=== PATIENT | male | born 1970 | race Caucasian/White ===

== ENCOUNTER 2021-12-01 15:59 | Observation (INO) | payer SELFPAY ==
[2021-12-01 16:43] LABS: Absolute Lymphocytes (CBC) 3.1 K/uL (0.7-4.9); Hematocrit 43.7 % (39.6-49.0); Lymphocytes % 31.7 % (15.3-44.8); MPV 7.9 fL (7.6-11.3); RBC Red Blood Cell Count 4.95 M/uL (4.33-5.43)
[2021-12-01 17:07] LABS: Potassium 4.1 mmol/L (3.5-5.1); Troponin High Sensitivity 5.7 pg/mL (<58.9)
--- NOTE | 2021-12-01 18:12 | RAD REPORT ---
EXAM DESCRIPTION: RAD - Chest Single View - 12/01/2021 5:58 pm CLINICAL HISTORY: CHEST PAIN Chest pain. COMPARISON: CHEST PA AND LAT 2 VIEW dated 08/21/2015; CHEST PA AND LAT 2 VIEW dated 10/20/2009 FINDINGS: Portable technique limits examination quality. The lungs are grossly clear. The heart is normal in size. No displaced fractures. IMPRESSION: No acute intrathoracic process suspected.
[2021-12-01] MEDS ORDERED: ASPIRIN 81 MG CHEWABLE TABLET ONE (18:35)
--- NOTE | 2021-12-01 18:45 | ER ---
Nurse's Notes [facility] Name: Walter Gutiérrez Age: 51 yrs Sex: Male : 1970 Arrival Date: 12/01/2021 Time: 16:00 Bed 4 Private MD: Diagnosis: Chest pain, unspecified Presentation: 12/01 16:04 Chief complaint: Patient states: about 15 minutes ago, pt states chest pain that 'feels vg1 like someone was standing across my chest'. Pt denies SOB, nausea, or headache. Also stated chest pain did not radiate. Coronavirus screen: Vaccine status: Patient reports being unvaccinated. Client denies travel out of the [place] in the last 14 days. Ebola Screen: Patient denies exposure to infectious person. Patient denies travel to an Ebola-affected area in the 21 days before illness onset. Initial Sepsis Screen: Does the patient meet any 2 criteria? No. Patient's initial sepsis screen is negative. Does the patient have a suspected source of infection? No. Patient's initial sepsis screen is negative. Risk Assessment: Do you want to hurt yourself or someone else? Patient reports no desire to harm self or others. Onset of symptoms was December 01, 2021. 16:04 Method Of Arrival: Ambulatory vg1 16:04 Acuity: SHABANA 2 vg1 Triage Assessment: 16:08 General: Appears uncomfortable, Behavior is cooperative. Pain: Complains of pain in vg1 chest. Cardiovascular: Patient's skin is warm and dry. Historical: - Allergies: 16:08 No Known Allergies; vg1 - Home Meds: 16:08 Lisinopril Oral [Active]; Metformin Oral [Active]; vg1 - PMHx: 16:08 Hypertensive disorder; Diabetes mellitus; vg1 - Immunization history:: Client reports having NOT received the Covid vaccine. - Social history:: Smoking status: Patient reports the use of cigarette tobacco products, smokes two packs cigarettes per day. Screenin:50 Abuse screen: Denies threats or abuse. Denies injuries from another. Nutritional ww screening: No deficits noted. Tuberculosis screening: No symptoms or risk factors identified. Fall Risk None identified. Assessment: 17:50 General: Appears in no apparent distress. Pain: Complains of pain in chest Pain began ww suddenly. Neuro: Level of Consciousness is awake, alert, obeys commands, Oriented to person, place, time, situation, Moves all extremities. Speech is normal. Cardiovascular: Capillary refill < 3 seconds Patient's skin is warm and dry. Respiratory: Airway is patent Respiratory effort is even, unlabored, Respiratory pattern is regular, symmetrical. GI: No signs and/or symptoms were reported involving the gastrointestinal system. : No signs and/or symptoms were reported regarding the genitourinary system. Derm: Skin is healthy with good turgor. 18:21 Reassessment: Patient appears in no apparent distress at this time. No changes from previously documented assessment. Patient and/or family updated on plan of care and expected duration. Pain level reassessed. Patient is alert, oriented x 3, equal unlabored respirations, skin warm/dry/pink. Vital Signs: 16:04 BP 115 / 92; Pulse 88; Resp 16; Temp 97.5; Pulse Ox 98% ; Weight 97.52 kg; Height 5 ft. vg1 10 in. (177.80 cm); Pain 0/10; 17:30 BP 107 / 77; Pulse 81; Resp 16; Pulse Ox 98% on R/A; ww 18:21 BP 116 / 67; Pulse 73; Resp 16; Pulse Ox 98% on R/A; ww 16:04 Body Mass Index 30.85 (97.52 kg, 177.80 cm) vg1 ED Course: 16:00 Patient arrived in ED. rg4 16:08 Andrew Byrd NP is PHCP. pm1 16:08 Alisia Weiner MD is Attending Physician. pm1 16:08 Triage completed. vg1 16:08 Arm band placed on. vg1 16:17 Una Amaya, KP is Primary Nurse. ww 16:18 EKG done, by ED staff, reviewed by Andrew Byrd NP. mb7 16:26 Inserted saline lock: 20 gauge in right antecubital area, using aseptic technique. mb7 17:50 Patient has correct armband on for positive identification. Bed in low position. Call ww light in reach. Side rails up X 1. Adult w/ patient. media monitor on. Pulse ox on. NIBP on. 17:50 Patient maintains SpO2 saturation greater than 95% on room air. ww 18:00 XRAY Chest (1 view) In Process Unspecified. EDMS 18:44 Brown, Christine, PA is Hospitalizing Provider. pm1 19:29 Primary Nurse role handed off by Una Amaya, RN mw2 20:00 Amy Souza, RN is Primary Nurse. kd3 Administered Medications: 18:33 Drug: Aspirin Chewable Tablet 324 mg Route: PO; ww Outcome: 18:44 Decision to Hospitalize by Provider. pm1 23:11 Patient left the ED. al4 Signatures: Dispatcher [employer] EDCT Anderw Byrd NP AQUATICS ASSISTANT DEPARTMENT HEAD pm1 Adalgisa Adams rg4 Mikala Pruitt mw2 Crystal Adams, RN RN vg1 Amy Souza, RN RN kd3 Yessenia Sandhu7 Truong Soares al4 Una Amaya, RN RN ww
--- NOTE | 2021-12-01 18:45 | EDPHYS ---
Physician Documentation [facility] Name: Walter Gutiérrez Age: 51 yrs Sex: Male : 1970 Arrival Date: 12/01/2021 Time: 16:00 Bed 4 Private MD: ED Physician Alisia Weiner HPI: 12/01 16:08 This 51 yrs old Male presents to ER via Unassigned with complaints of Chest Pain. pm1 16:08 The patient or guardian reports chest pain that is located primarily in the mid-sternal pm1 area. Onset: just prior to arrival. The pain does not radiate. Associated signs and symptoms: Pertinent positives: diaphoresis, Pertinent negatives: abdominal pain, cough, dizziness, headache, nausea, shortness of breath, vomiting. The chest pain is described as a pressure. Duration: The patient or guardian reports a single episode, that is now resolved, that lasted 15 minute(s). Modifying factors: The symptoms are alleviated by nothing. the symptoms are aggravated by nothing. Severity of pain: At its worst the pain was a 8 / 10 in the emergency department the pain has resolved. The patient has not experienced similar symptoms in the past. The patient has not recently seen a physician. 16:08 Father [place] hx late 50's. pm1 Historical: - Allergies: 16:08 No Known Allergies; vg1 - Home Meds: 16:08 Lisinopril Oral [Active]; Metformin Oral [Active]; vg1 - PMHx: 16:08 Hypertensive disorder; Diabetes mellitus; vg1 - Immunization history:: Client reports having NOT received the Covid vaccine. - Social history:: Smoking status: Patient reports the use of cigarette tobacco products, smokes two packs cigarettes per day. ROS: 16:08 Constitutional: Negative for fever, chills, and weight loss. pm1 16:08 Respiratory: Negative for shortness of breath, cough, wheezing, and pleuritic chest pain, Abdomen/GI: Negative for abdominal pain, nausea, vomiting, diarrhea, and constipation, Back: Negative for injury and pain, MS/Extremity: Negative for injury and deformity, Skin: Negative for injury, rash, and discoloration, Neuro: Negative for headache, weakness, numbness, tingling, and seizure. 16:08 Cardiovascular: Positive for chest pain, Negative for edema, palpitations. 16:08 All other systems are negative. Exam: 16:08 Constitutional: This is a well developed, well nourished patient who is awake, alert, pm1 and in no acute distress. Head/Face: Normocephalic, atraumatic. 16:08 Back: No spinal tenderness. No costovertebral tenderness. Full range of motion. Skin: Warm, dry with normal turgor. Normal color with no rashes, no lesions, and no evidence of cellulitis. MS/ Extremity: Pulses equal, no cyanosis. Neurovascular intact. Full, normal range of motion. 16:08 Eyes: Exam is negative for acute changes, Extraocular movements: no acute changes, Conjunctiva: normal, no injection, Sclera: no acute changes, icterus, is not appreciated. 16:08 Cardiovascular: Exam negative for acute changes, Rate: normal, Rhythm: regular, Pulses: no pulse deficits are appreciated, Heart sounds: normal, normal S1and S2, Edema: is not appreciated. 16:08 Respiratory: Exam negative for acute changes, respiratory distress, shortness of breath, Breath sounds: are clear throughout. 16:08 Abdomen/GI: Inspection: obese Palpation: abdomen is soft and non-tender, in all quadrants. 16:08 Neuro: Exam negative for acute changes, Orientation: is normal, Mentation: is normal, Motor: is normal, moves all fours. Vital Signs: 16:04 BP 115 / 92; Pulse 88; Resp 16; Temp 97.5; Pulse Ox 98% ; Weight 97.52 kg; Height 5 ft. vg1 10 in. (177.80 cm); Pain 0/10; 17:30 BP 107 / 77; Pulse 81; Resp 16; Pulse Ox 98% on R/A; ww 18:21 BP 116 / 67; Pulse 73; Resp 16; Pulse Ox 98% on R/A; ww 16:04 Body Mass Index 30.85 (97.52 kg, 177.80 cm) vg1 MDM: 16:10 Patient medically screened. pm1 18:21 ED course: Discussed case with Dr. Bone, recommends admission for further evaluation pm1 of chest pain. 18:26 Data reviewed: vital signs. Data interpreted: Pulse oximetry: on room air is 98 %. pm1 Interpretation: normal. Counseling: I had a detailed discussion with the patient and/or guardian regarding: the historical points, exam findings, and any diagnostic results supporting the discharge/admit diagnosis, lab results, radiology results, the need for further work-up and treatment in the hospital. 12/01 16:30 Order name: Basic Metabolic Panel; Complete Time: 17:21 12/01 16:30 Order name: CBC with Diff; Complete Time: 16:58 12/01 16:30 Order name: Troponin HS; Complete Time: 17:21 12/01 16:30 Order name: XRAY Chest (1 view); Complete Time: 18:13 12/01 19:34 Order name: COVID-19/FLU A+B (Document "Date of Onset" if Symptomatic); Complete Time: mw2 08:11 12/01 16:30 Order name: EKG; Complete Time: 16:30 12/01 16:30 Order name: Cardiac monitoring; Complete Time: 16:30 12/01 16:30 Order name: EKG - Nurse/Tech; Complete Time: 16:30 12/01 16:30 Order name: IV Saline Lock; Complete Time: 16:30 12/01 16:30 Order name: Labs collected and sent; Complete Time: 16:30 12/01 16:30 Order name: O2 Per Protocol; Complete Time: 16:30 12/01 16:30 Order name: O2 Sat Monitoring; Complete Time: 16:46 ss Administered Medications: 18:33 Drug: Aspirin Chewable Tablet 324 mg Route: PO; ww Disposition Summary: 12/01/21 18:44 Hospitalization Ordered Hospitalization Status: Observation pm1 Provider: Christine Hand pm1 Location: Telemetry/[facility] (observation) pm1 Condition: Stable pm1 Problem: new pm1 Symptoms: have improved pm1 Bed/Room Type: Standard pm1 Room Assignment: 206(12/01/21 21:34) vc1 Diagnosis - Chest pain, unspecified pm1 Forms: - Medication Reconciliation Form pm1 - SBAR form pm1 Signatures: Dispatcher [employer] Angelica Kumari RN RN ss Andrew Byrd, BAY PUMP OPERATOR pm1 Crystal Adams RN RN vg1 Una Amaya RN RN ww Calcote, Vanessa, RN RN vc1 Corrections: (The following items were deleted from the chart) 21:34 18:44 pm1 vc1
[2021-12-01 21:04] LABS: SARS-COV-2 RT PCR NEGATIVE (NEGATIVE)
[2021-12-01] MEDS ORDERED: ONDANSETRON 4 MG/2 ML VIAL IV PRN (22:41)
[2021-12-01] MEDS ORDERED: ACETAMINOPHEN 500 MG TAB PO PRN (22:41)
[2021-12-01] MEDS ORDERED: ATORVASTATIN 40 MG TAB PO SCH (22:41)
--- NOTE | 2021-12-01 22:46 | P.HP ---
Certification for Inpatient Patient admitted to: Observation With expected LOS: <2 Midnights Patient will require the following post-hospital care: None Practitioner: I am a practitioner with admitting privileges, knowledge of patient current condition, hospital course, and medical plan of care. Services: Services provided to patient in accordance with Admission requirements found in Title 42 Section 412.3 of the Code of Federal Regulations Patient History Date of Service: 12/01/21 Reason for admission: Chest pain History of Present Illness: Patient is a 51-year-old male with past medical history of hypertension and prediabetes who presented to the ED with complaints of chest pain. He states he was at [employer] helping move something heavy and started to feel mild chest pain that resolved. About 30 minutes later he was sitting in the drive-through [facility] and started to feel an 8/10 midsternal chest pain. He reported some diaphoresis but denied any radiation, shortness of breath, nausea or vomiting. In the ED, EKG showed NSR, chest x-ray without abnormalities, troponin negative, other labs within normal limits. Patient sta ludwin he has not seen a web ui developer. He does have a family history of [place] and smokes 2 packs a day. he was given 324 mg of aspirin. ED provider wishes to admit patient for observation. Allergies No Known Drug Allergies Allergy (Unverified 01/17/15 00:28) Unknown Home medications list reviewed: Yes - Past Medical/Surgical History Diabetic: No -: Hypertension -: Prediabetes Past Surgical History: Patient denies surgical history Psychosocial/ Personal History: Patient works as a truck shop mechanic. He lives at home with his . - Family History Father -: Heart disease - Social History Smoking Status: Heavy Tobacco smoker (>10 cigarettes/day) Alcohol use: Yes CD- Drugs: No Caffeine use: Yes Place of Residence: Home Review of Systems 10-point ROS is otherwise unremarkable Cardiovascular: Chest Pain Physical Examination - Physical Exam General: Alert, In no apparent distress, Oriented x3 HEENT: Atraumatic, PERRLA, Mucous membr. moist/pink, EOMI, Sclerae nonicteric Neck: Supple, 2+ carotid pulse no bruit, No LAD, Without JVD or thyroid ab normality Respiratory: Clear to auscultation bilaterally, Normal air movement Cardiovascular: No edema, Normal pulses, Regular rate/rhythm, Normal S1 S2 Gastrointestinal: Normal bowel sounds, No tenderness Musculoskeletal: No tenderness Integumentary: No rashes Neurological: Normal speech, Normal strength at 5/5 x4 extr, Normal tone, Normal affect - Studies Laboratory Data (last 24 hrs) 12/01/21 16:25: WBC 9.7, Hgb 15.2, Hct 43.7, Plt Count 238 12/01/21 16:25: Sodium 135 L, Potassium 4.1, BUN 20 H, Creatinine 1.19, Glucose 93 Assessment and Plan - Problems (Diagnosis) (1) Chest pain Current Visit: Yes Status: Acute Qualifiers: Chest pain type: unspecified Qualified Code(s): R07.9 - Chest pain, unspecified (2) Hypertension Current Visit: Yes Status: Chronic Qualifiers: Hypertension type: primary hypertension Qualified Code(s): I10 - Essential (primary) hypertension (3) Tobacco use Current Visit: Yes Status: Chronic (4) Prediabetes Current Visit: Yes Status: Chronic - Plan -Patient given 324 mg chewable aspirin in the ED. We will continue 81 mg daily. Atorvastatin 40 mg ordered at bedtime -Cardiology consulted. Echo ordered. Patient has not seen a web ui developer in the past nor had a cardiac work-up -Initial troponin negative at 5.7. Will check every 6 hours x2. EKG showed NSR. Patient states chest pain has resolved -Patient smokes 2-2.5 pack of cigarettes a day. Nicotine patch as needed -Continue home medications -Lovenox for DVT prophylaxis Discharge Plan: Home Plan to discharge in: 24 Hours - Advance Directives Does patient have a Living Will: No Does patient have a Durable POA for Healthcare: No - Code Status/Comfort Care Code Status Assessed: Yes (Full) Critical Care: No Time Spent Managing Pts Care (In Minutes): 50
[2021-12-02 02:12] VITALS: O2SAT 95; BMI 30.8
[2021-12-02 08:21] VITALS: BP 107/69; TEMP 98.1
[2021-12-02] MEDS ORDERED: NICOTINE 21 MG/PAT TD SCH (09:00)
[2021-12-02 09:24] LABS: Troponin High Sensitivity 5.2 pg/mL (<58.9)
[2021-12-02 09:25] LABS: Thyroid Stimulating Hormone 3.83 uIU/mL (0.360-3.740)
--- NOTE | 2021-12-02 10:17 | P.DS ---
Admission Date: 12/01/21 Discharge Date: 12/02/21 Disposition: ROUTINE DISCHARGE Discharge Condition: FAIR Reason for Admission: Chest pain - Problems (1) DM type 2 (diabetes mellitus, type 2) Status: Acute (2) Chest pain Status: Acute Qualifiers: Chest pain type: unspecified Qualified Code(s): R07.9 - Chest pain, unspecified (3) Hypertension Status: Chronic Qualifiers: Hypertension type: primary hypertension Qualified Code(s): I10 - Essential (primary) hypertension (4) Tobacco use Status: Chronic Brief History of Present Illness: Patient is a 51-year-old male with past medical history of hypertension and diabetes who presented to the ED with complaints of chest pain. He states he was at [employer] helping move something heavy and started to feel mild chest pain that resolved. About 30 minutes later he was sitting in the drive-through [facility] and started to feel an 8/10 midsternal chest pain. He reported some diaphoresis but denied any radiation, shortness of breath, nausea or vomiting. In the ED, EKG showed NSR, chest x-ray without abnormalities, troponin negative, other labs within normal limits. He does have a family history of [place] and smokes 2 packs a day. he was given 324 mg of aspirin. Patient placed on observation for ACS rule out. Hospital Course: Troponin trended negative. Patient was chest pain-free during the observation. Lipid profile showed elevated triglyceride. Patient requested to go home today. I discussed with him the need for stress test given his significant CAD risk factors. Patient declined to stay in the hospital to tomorrow for stress test. He is discharged per his request to take baby aspirin daily and to cut down his fat and lipid intake. He is referred for outpatient stress test with Dr. Pitts and informed to call Dr. Pitts's office tomorrow for arrangement for stress test. Vital Signs/Physical Exam: Temp Pulse Resp BP Pulse Ox 98.1 F 68 14 107/69 97 12/02/21 08:00 12/02/21 08:00 12/02/21 08:00 12/02/21 08:00 12/02/21 08:00 General: Alert, In no apparent distress, Oriented x3 HEENT: Mucous membr. moist/pink Neck: Supple, JVD not distended Respiratory: Clear to auscultation bilaterally, Normal air movement Cardiovascular: No edema, Regular rate/rhythm, Normal S1 S2 Capillary refill: <2 Seconds Gastrointestinal: Soft and benign, Non-distended, No tenderness Musculoskeletal: No swelling Integumentary: No rashes, No erythema, No cyanosis Neurological: Normal strength at 5/5 x4 extr Laboratory Data at Discharge: WBC 9.7 K/uL (4.3-10.9) 12/01/21 16:25 Hgb 15.2 g/dL (13.6-17.9) 12/01/21 16:25 Hct 43.7 % (39.6-49.0) 12/01/21 16:25 Plt Count 238 K/uL (152-406) 12/01/21 16:25 Sodium 135 mmol/L (136-145) L 12/01/21 16:25 Potassium 4.1 mmol/L (3.5-5.1) 12/01/21 16:25 BUN 20 mg/dL (7-18) H 12/01/21 16:25 Creatinine 1.19 mg/dL (0.55-1.3) 12/01/21 16:25 Glucose 93 mg/dL (74-106) 12/01/21 16:25 Triglycerides 329 mg/dL (<150) H 12/02/21 08:48 Cholesterol 164 mg/dL (<200) 12/02/21 08:48 HDL Cholesterol 35 mg/dL (40-60) L 12/02/21 08:48 Cholesterol/HDL Ratio 4.69 12/02/21 08:48 Home Medications: Glimepiride 1 mg PO DAILY 12/01/21 Lisinopril/Hydrochlorothiazide [Lisinopril-Hctz 20-12.5 mg Tab] 2 tab PO DAILY 12/01/21 Metformin HCl 850 mg PO BID 12/01/21 Aspirin [Aspirin EC 81 MG] 81 mg PO DAILY #30 tablet. 12/02/21 New Medications: Aspirin [Aspirin EC 81 MG] 81 mg PO DAILY #30 tablet. Diet: ADA Activity: Ad kale Followup: Robi Pitts MD [ACTIVE - CAN ADMIT] - 1-2 Days (Please call Office at [phone] for arrangements for stress test) Kenneth Ayala FNP [OUTSIDE PHYSICIAN] - 1-2 Weeks (PCP- call to schedule an appointment )
== END 2021-12-02 11:22 | disposition home or self-care (01) ==
LOC: ER 15:59 → ERHOLD 20:30 → 2ND 22:19
PROVIDERS: ADMIT Internal Medicine; ATTEND Internal Medicine
DX: R07.9 Chest pain, unspecified (principal); I10 Essential (primary) hypertension; E11.9 Type 2 diabetes mellitus without complications; F17.210 Nicotine dependence, cigarettes, uncomplicated; Z79.899 Other long term (current) drug therapy; Z20.822 Contact with and (suspected) exposure to COVID-19; Z82.49 Family history of ischemic heart disease and other diseases of the circulatory system
CPT/HCPCS: 0240U; 36415; 71045; 80048; 80061; 84439; 84443; 84484; 85025; 93005; 99285; G0378